=== PATIENT | male | born 1950 | race Caucasian/White ===

== ENCOUNTER 2016-06-08 10:26 | Day surgery (SDC) | payer OTHER ==
[~2016-06-08] VITALS: Ht 175.3 cm; Wt 83.9 kg
--- NOTE | ~2016-06-08 | O ---
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 PROCEDURE: Right lower lid ectropion repair with transconjunctival right lower lid and cheek lift. SURGEON: Cuauhtemoc Augero MD FACETOR: None. ANESTHESIA: Local with IV sedation. COMPLICATIONS: None. 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 He has previously undergone correction for this problem recurrence. He presents today for a right lower lid and cheek surgery in order to attempt to improve his ocular surface milieu. Informed consent was obtained to include, but not limited to the potential risk for loss of vision, bleeding, infection, failure to improve the problem, and the potential need for further surgery or treatment. DESCRIPTION OF PROCEDURE: The patient was taken to the operating room where 2% Xylocaine with epinephrine mixed with equal parts of 0.75% Marcaine with Wydase was administered transconjunctivally and transcutaneously to the right lower lid, the right lateral canthus, the right cheek and the right infratemporal fossa. The patient was subsequently prepped and draped in the usual sterile fashion. The right lateral canthus was then clamped with a Galeas clamp. A sharp canthotomy and cantholysis was subsequently performed. A tarsal strip was then prepared laterally removing the lash bearing portion of the redundant lid margin and the redundant tarsal plate. A transconjunctival incision was then made below the inferior border of the tarsal plate. The dissection was carried out into the [address] [address] OPERATIVE REPORT Name: NANCY LARA Room #: 150-11 [facility]#: [id number] Admission: 06/08/16 Attend Phys: Cuauhtemoc Aguero MD Discharge: Date of : 50 Report #: [id number] utilizing sharp dissection for the most part. Hemostasis was then re-achieved. The lower lid and cheek tissues were then elevated and resuspended from the periosteum with interrupted 5-0 Prolene sutures. Attention was then turned to completion of the ectropion repair. The tarsal strip was secured to the internal portion of the lateral orbital tubercle with 2 interrupted 5-0 Prolene sutures. The subcutaneous structures and the skin were then closed with interrupted 6-0 plain gut sutures. The wounds were then cleaned and dressed with erythromycin ophthalmic ointment and the patient subsequently transported to the recovery area having tolerated the procedures well with no anesthetic or operative complications being noted. By: [id number] Cuauhtemoc Aguero MD /nt
--- NOTE | ~2016-06-08 | EKG ---
[place] [address] [facility] [employer] [place] [place] [address] ELECTROCARDIOGRAM REPORT Name: NANCY LARA Room #: [facility]#: [id number] Admission: 06/08/16 Attend Phys: Cuauhtemoc Aguero MD Discharge: 06/08/16 Date of : 50 Report #: [id number] THIS REPORT FOR: //name// [facility] Test Date: 2016-06-08 Test Time: 10:56:24 Pat Name: NANCY LARA Department: Room: 150 11 Gender: M [employer]: JASS : 1950 Requested By: Cuauhtemoc Aguero Order Number: [id number] MD: Jaylon Park Measurements Intervals [place] Rate: 76 P: 67 NC: 140 QRS: 15 QRSD: 88 T: 55 QT: 366 QTc: 412 Interpretive Statements Sinus rhythm Ventricular premature complex Baseline wander in lead(s) V1 No previous ECG available for comparison Electronically Signed On 06-08-2016 14:33:52 CDT by Jaylon Park [email or web address] <ELECTRONICALLY SIGNED> By: Jaylon Park MD 06/08/16 1433 55 55 Jaylon Park MD /[email or web address]
[2016-06-08 12:00] VITALS: BP 133/80
== END 2016-06-08 13:05 | disposition home or self-care (01) ==
LOC: OR 10:26 → TBA 10:27 → OR 10:42
DX: H02.102 Unspecified ectropion of right lower eyelid (principal); H02.532 Eyelid retraction right lower eyelid; H02.202 Unspecified lagophthalmos right lower eyelid; H18.9 Unspecified disorder of cornea; E11.9 Type 2 diabetes mellitus without complications; F17.210 Nicotine dependence, cigarettes, uncomplicated; Z98.890 Other specified postprocedural states
CPT/HCPCS: 50010; 50101; 50386; 50398; 51636; 56527; 56531; 62110; 62850; 70005